=== PATIENT | male | born 1990 | race Native Hawaiian/Other Pacific Islander ===

== ENCOUNTER 2022-08-14 04:51 | Emergency (ER) | payer OTHER ==
[~2022-08-14] VITALS: Ht 167.6 cm; Wt 97.5 kg
[2022-08-14 05:14] VITALS: BP 111/74
== END 2022-08-14 06:34 | disposition left against medical advice (07) ==
LOC: ER 04:51
DX: R10.10 Upper abdominal pain, unspecified (principal); R11.0 Nausea; Z53.21 Procedure and treatment not carried out due to patient leaving prior to being seen by health care provider